=== PATIENT | male | born 1985 | race Two or more races ===

== ENCOUNTER → 2023-02-27 14:46 | Outpatient (REF) | payer OTHER, SELFPAY | LOC: HO.SL 14:46 | PROVIDERS: Visit Provider Physician Assistant | DX: G47.33 Obstructive sleep apnea (adult) (pediatric) (principal); R06.83 Snoring | CPT/HCPCS: 95806 ==

== ENCOUNTER → 2023-02-27 19:00 | Outpatient (BNV) | payer OTHER, SELFPAY | PROVIDERS: Visit Provider Internal Medicine | DX: G47.33 Obstructive sleep apnea (adult) (pediatric) (principal) | CPT/HCPCS: 95806 ==

== ENCOUNTER 2023-03-09 09:13 | Emergency (ER) | payer OTHER, SELFPAY ==
--- NOTE | ~2023-03-09 | US_ITS ---
EXAMINATION: US SCROTUM CLINICAL INFORMATION: Right testicular pain. COMPARISON: None available. TECHNIQUE: A sonogram of the scrotum was performed assessing knott-scale appearance and color Doppler flow. Spectral Doppler analysis of the arterial and venous flow were performed in the testes bilaterally. FINDINGS: RIGHT: Right testicle measures 4.9 x 2.5 x 3.1 cm, volume 19.1 mL. No focal testicular parenchymal lesions are visualized. Scattered microliths. Spectral Doppler analysis of the arterial and venous flow is normal in the right testis. Right epididymal head is normal in size. No significant right hydrocele or varicocele is seen. Right epididymal Doppler flow is normal. LEFT: Left testicle measures 4.6 x 2.6 x 2.8 cm, volume 17.4 mL. No focal testicular parenchymal lesions are visualized. Scattered microliths. Spectral Doppler analysis of the arterial and venous flow is normal in the left testis. Small left testicular appendix. Left epididymal head is normal in size. No significant left hydrocele or varicocele is seen. Left epididymal Doppler flow is normal. US/US scrotum doppler IMPRESSION: There is no evidence of testicular torsion. Few scattered testicular microliths. Left testicular appendix.
--- NOTE | ~2023-03-09 | US_ITS ---
EXAMINATION: US SCROTUM CLINICAL INFORMATION: Right testicular pain. COMPARISON: None available. TECHNIQUE: A sonogram of the scrotum was performed assessing knott-scale appearance and color Doppler flow. Spectral Doppler analysis of the arterial and venous flow were performed in the testes bilaterally. FINDINGS: RIGHT: Right testicle measures 4.9 x 2.5 x 3.1 cm, volume 19.1 mL. No focal testicular parenchymal lesions are visualized. Scattered microliths. Spectral Doppler analysis of the arterial and venous flow is normal in the right testis. Right epididymal head is normal in size. No significant right hydrocele or varicocele is seen. Right epididymal Doppler flow is normal. LEFT: Left testicle measures 4.6 x 2.6 x 2.8 cm, volume 17.4 mL. No focal testicular parenchymal lesions are visualized. Scattered microliths. Spectral Doppler analysis of the arterial and venous flow is normal in the left testis. Small left testicular appendix. Left epididymal head is normal in size. No significant left hydrocele or varicocele is seen. Left epididymal Doppler flow is normal. US/US scrotum IMPRESSION: There is no evidence of testicular torsion. Few scattered testicular microliths. Left testicular appendix.
--- NOTE | ~2023-03-09 | CT_ITS ---
EXAMINATION: CT ABDOMEN AND PELVIS WITH CONTRAST CLINICAL INFORMATION: Left lower quadrant pain. COMPARISON: None available. TECHNIQUE: Multidetector volumetric images were obtained from the superior aspect of the liver through the pubic symphysis following administration 85 mL of Omnipaque 350 intravenous contrast. Sagittal and coronal reformatted images were obtained on the technologist's workstation. Oral contrast: No This CT examination was performed using dose optimization techniques as appropriate, variously including the following: *Automated exposure control *Adjustment of mA and/or kV according to patient size (this includes techniques or standardized protocols for targeted exams where dose is matched to indication/reason for exam; i.e. extremities or head) *Use of iterative reconstruction technique DLP: 1041 mGy-cm FINDINGS: LUNG BASES: The visualized lung bases are unremarkable. LIVER, GALLBLADDER, AND BILIARY TREE: The liver is decreased in attenuation. No focal hepatic lesion or biliary ductal dilatation is present. The gallbladder is unremarkable with no evidence of radiopaque gallstones, gallbladder wall thickening, or obvious pericholecystic inflammatory changes. PANCREAS: Unremarkable. SPLEEN: Unremarkable. ADRENAL GLANDS: Unremarkable. KIDNEYS AND URETERS: The kidneys are normal in size, shape, and attenuation. No hydronephrosis. No perinephric stranding. BLADDER: Underdistended. GASTROINTESTINAL TRACT: The small and large bowel are unremarkable. The appendix is unremarkable. ABDOMINAL WALL: No significant hernia is appreciated. LYMPH NODES: Scattered subcentimeter mesenteric lymph nodes are nonspecific. VASCULAR: Normal caliber abdominal aorta. PELVIC VISCERA: Coarse calcifications of the prostate gland. OSSEOUS STRUCTURES: No destructive bone lesion. CT/CT abdomen pelvis w IV con IMPRESSION: No acute abnormality in the abdomen or pelvis. Hepatic steatosis.
[2023-03-09 09:18] VITALS: BP 157/91; PULSE 84; RESP 18; TEMP 36.5; O2SAT 96; BMI 38.0
--- NOTE | 2023-03-09 09:40 | ED.MALEGU ---
HPI - Male Genitourinary General Chief complaint: Urogenital-Male Stated complaint: testicle pain Time Seen by Provider: 03/09/23 09:40 Source: patient Mode of arrival: ambulatory Limitations: no limitations History of Present Illness HPI Narrative: Patient is a 37-year-old male with history of left varicocele status post surgical repair presenting to the emergency department with complaint of right testicular pain since Monday. States pain has been constant, denies swelling, erythema, rash. Denies any abnormal penile discharge. Does report some dysuria. States the pain is radiating to his lower abdomen. He also reports nausea and diarrhea which began this morning. Denies fevers. Denies vomiting or constipation. MD Complaint: testicle pain Onset (ago): day(s) Duration: constant Location: right testicle Severity: severe Severity scale (1-10): 8 Quality: aching Relieving factors: none Exacerbating factors: palpation and movement Associated symptoms: Reports denies other symptoms Related Data Allergies Allergy/AdvReac Type Severity Reaction Status Date / Time loratadine [From Claritin] Allergy Anaphylaxis Verified 03/09/23 09:17 Review of Systems Review of Systems: As per HPI. Yes all other systems are reviewed and are negative Constitutional: Constitutional: Reports as per HPI [facility] Social History Social History Smoked in Last 30 Days: No Advance Directives: No Physical Exam Vital Signs: Vital Signs: Last Vital Signs Temp 97.7 F 03/09/23 09:18 Pulse 84 03/09/23 09:18 Resp 18 03/09/23 09:18 BP 157/91 H 03/09/23 09:18 Pulse Ox 96 03/09/23 09:18 O2 Del Method Room Air 03/09/23 09:18 BMI result Body Mass Index 38.0 Vital signs have been reviewed and appear to be correct. Blood pressure elevated. Heart rate normal. Respiratory rate normal. Temperature normal. Oxygen saturation normal. Const: General: cooperative, healthy appearing and no acute distress Orientation/consciousness: oriented to person, oriented to place, oriented to time and patient oriented x3 Limitations: no limitations HEENT: Head: Yes normocephalic and Yes atraumatic Ears: external ears normal General nose exam: Normal external nose present Face and sinus: Yes face symmetric Mouth: oropharynx normal and moist mucous membranes Throat: Yes uvula midline Eyes: Pupils: Equal, round and reactive pupils present Neck: Neck: Yes normal visual inspection and Yes supple Resp: Effort & Inspection: normal respiratory effort and able to speak in complete sentences Auscultation: clear to auscultation bilaterally Cardio: Rate: regular rate Rhythm: regular rhythm Heart sounds: S1 normal heart sound present and S2 normal heart sound present GI: Palpation (GI): Soft to palpation and nontender Auscultation: normoactive bowel sounds : Other: Exam chaperoned by SHARAD Nicholas General: Yes no CVA tenderness Penis: normal penis Scrotum: scrotum normal, cremasteric reflex present, no ecchymosis, not edematous, not erythematous, testes descended bilaterally and other (surgical scar left inguinal area) Testes: testicular lie normal, epididymal tenderness on the right, no testicular swelling and testicular tenderness on the right Back/Spine/Pelvis: Back: no CVA tenderness Skin: General skin exam: elasticity normal and turgor normal Neuro: General: oriented to person, oriented to place, oriented to time, patient oriented x3, moves all extremities, no focal motor deficits and CN's II-XI intact bilaterally Cranial nerves: Yes Equal, round and reactive pupils present Cognition (Neuro): normal cognition Extrem: General: Yes full ROM, Yes no pedal edema and Yes no calf tenderness Psych: Mental Status: mental status grossly normal Affect: normal affect Thought process: Normal thought process present Medications Administered Discontinued Medications Generic Name Dose Route Start Last Admin Trade Name Freq PRN Reason Stop Dose Admin Iohexol 100 ml 03/09/23 14:10 03/09/23 14:10 Iohexol 350 Mg/Ml 100 Ml Infus..Btl IV 03/09/23 14:11 85 ml ONCE ONE Administration Ketorolac Tromethamine 30 mg 03/09/23 09:44 03/09/23 09:50 Ketorolac Tromethamine 30 Mg/Ml Vial IM 03/09/23 09:45 30 mg ONCE ONE Administration Medical Decision Making Medical Decision Making MDM Narrative: Patient is a 37-year-old male with history of left varicocele status post surgical repair presenting to the emergency department with complaint of right testicular pain since Monday. On exam patient is awake, A+Ox3, BP elevated, VS otherwise WNL, afebrile, normal neurological exam without focal deficits, physical exam findings as above. Given reported symptoms and physical exam findings, initial differential includes torsion, epididymitis, epididymo-orchitis, hydrocele, varicocele. Do not suspect Peyton's, hernia, abscess. Ultrasound notable for no torsion, no evidence of epididymitis, hydrocele, or varicocele. No evidence of infection on urinalysis. Will obtain basic labs, reassess. On re-exam patient noted to have LLQ abdominal tenderness. Will obtain CT abdomen/pelvis. Labs notable for no leukocytosis, no anemia, no significant electrolyte abnormalities. CT notable for no acute abnormalities. My interpretation is in agreement with the radiologist's interpretation. CT NG urine results pending, patient will be contacted with any positive results. Will prior patient to urology for further evaluation of symptoms. Return precautions discussed with patient at bedside. Advised patient to alternate Tylenol and ibuprofen as needed for discomfort. Patient verbalized understanding of and agreement with plan. Differential Diagnosis Differential Diagnoses: The differential diagnosis associated with the presentation includes As per [facility]. Admission/Observation Consideration of admission/observation: Escalation of care including admission/observation considered Lab Data [facility] Lab Attestation statement: I reviewed the patient's lab results. As per [facility]. 03/09/23 12:16 03/09/23 12:16 Labs: Lab Results 03/09/23 03/09/23 Range/Units 11:02 12:16 WBC 7.1 (4.8-10.8) X10*3/uL RBC 5.36 (4.60-5.80) X10*6/uL Hgb 15.0 (14.0-18.0) g/dl Hct 45.2 (42.0-52.0) % MCV 84.3 (80.0-98.0) fL MCH 28.0 (27.0-33.0) pg MCHC 33.2 (31.0-36.0) g/dl RDW 13.6 (11.0-16.0) % Plt Count 286 (160-400) X10*3/uL MPV 9.7 (9.4-12.4) fL Immature Gran % (Auto) 0.1 (0.0-0.4) % Neut % (Auto) 59.4 (45-73) % Lymph % (Auto) 30.1 (20-40) % Wise % (Auto) 8.6 (2-11) % Eos % (Auto) 1.5 (0-4) % Baso % (Auto) 0.3 (0-2) % Lymph # (Auto) 2.1 (1.2-4.9) X10*3/uL Wise # (Auto) 0.6 (0.1-1.2) X10*3/uL Eos # (Auto) 0.1 (0.0-0.4) X10*3/uL Baso # (Auto) 0.0 (0.0-0.2) X10*3/uL Abs Immat Gran (auto) 0.01 (0.00-0.03) X10*3/uL Absolute Neuts (auto) 4.2 (2.0-8.3) x10*3/uL Absolute Nucleated RBC 0.000 (0.0-0.012) X10*3/uL Nucleated RBC % (auto) 0.0 (0.0-0.2) /100WBC Sodium 139 (135-145) mmol/L Potassium 4.1 (3.3-5.1) mmol/L Chloride 106 (96-108) mmol/L Carbon Dioxide 27 (22-29) mmol/L Anion Gap 10 L (12-20) BUN 11 (9-16) mg/dL Creatinine 0.76 (0.5-1.4) mg/dL Estim Creat Clear Calc 169.5 Estimated GFR > 60 Random Glucose 90 (60-115) mg/dL Calcium 9.4 (8.4-10.2) mg/dL Urine Color Yellow Urine Appearance Clear Urine pH 8.0 (5.0-9.0) Ur Specific [place] 1.020 (1.005-1.025) Urine Protein Negative (Neg-Trace) mg/dL Urine Glucose (UA) Negative (Negative) mg/dL Urine Ketones Negative (Negative) mg/dL Urine Blood Negative (Negative) Urine Nitrite Negative (Negative) Ur Leukocyte Esterase Negative (Negative) Independent Interpretation I performed an independent interpretation of an: Ultrasound and CT Scan Interpretation: No acute abnormalities on abdominal CT Radiology Impression Discussion of test interpretation with radiology: I have reviewed the radiologist's reading. Radiologist Impression: US/US scrotum IMPRESSION: There is no evidence of testicular torsion. Few scattered testicular microliths. Left testicular appendix. CT/CT abdomen pelvis w IV con IMPRESSION: No acute abnormality in the abdomen or pelvis. Hepatic steatosis. External Record Review External record reviewed: Inpatient record, Office record and Outpatient record Discharge Plan Discharge Clinical Impression: Right testicular pain Patient Disposition: Home, Self-Care Instructions: Testicle Pain (ED) Additional Instructions: You were evaluated in the emergency department today for testicular pain. Your evaluation including labs, urinalysis, ultrasound, and CT scan did not show evidence of any conditions requiring emergent medical treatment at this time. You are being referred to urology for further evaluation of your symptoms. Please call their office 1st thing tomorrow morning to schedule an appointment. You can take 650 mg of Tylenol or 600 mg ibuprofen every 6 hours as needed for pain. If necessary, you can alternate these medications every 3 hours. For example, at noon take Tylenol, then at 3:00 p.m. take ibuprofen, then at 6:00 p.m. take Tylenol, etc.. Return to the emergency department with worsening pain, difficulty urinating, persistent vomiting, fever 100.4F or greater, or any other concerning symptoms. Referrals: [facility] [Provider Group]
[2023-03-09] MEDS: Ketorolac Tromethamine 30 MG/ML VIAL IM (09:50)
[2023-03-09 11:17] LABS: Appearance Urine Clear; Color Urine Yellow; Glucose Urine UA Negative (Negative); Leukocyte Esterase Urine Negative (Negative); Nitrite Urine Negative (Negative); Urine Blood Negative (Negative); Urine Ketones Negative (Negative); Urine Protein Negative (Neg-Trace)
[2023-03-09 12:26] LABS: MANUAL DIFF FLAG NO
[2023-03-09 12:34] LABS: Basophils Percent Auto 0.3 % (0-2); Eosinophils Absolute Auto 0.1 X10*3/uL (0.0-0.4); Eosinophils Percent Auto 1.5 % (0-4); Hematocrit 45.2 % (42.0-52.0); Imm Gran Abs Auto 0.01 X10*3/uL (0.00-0.03); Imm Gran Pct Auto 0.1 % (0.0-0.4); Lymphocytes Absolute Auto 2.1 X10*3/uL (1.2-4.9); Lymphocytes Percent Auto 30.1 % (20-40); Mean Corpuscular HGB Conc 33.2 g/dl (31.0-36.0); Mean Corpuscular Volume 84.3 fL (80.0-98.0); Mean Platelet Volume 9.7 fL (9.4-12.4); Monocytes Absolute Auto 0.6 X10*3/uL (0.1-1.2); Monocytes Percent Auto 8.6 % (2-11); Neutrophils Absolute Auto 4.2 x10*3/uL (2.0-8.3); Neutrophils Percent Auto 59.4 % (45-73); Platelet Count 286 X10*3/uL (160-400); Red Blood Count 5.36 X10*6/uL (4.60-5.80); Red Cell Distribution Width 13.6 % (11.0-16.0); White Blood Count 7.1 X10*3/uL (4.8-10.8)
[2023-03-09 12:39] LABS: Anion Gap 10 (12-20); Blood Urea Nitrogen 11 mg/dL (9-16); Calcium 9.4 mg/dL (8.4-10.2); Carbon Dioxide 27 mmol/L (22-29); Chloride 106 mmol/L (96-108); Creatinine Clr Calc Pharmacy 169.5; Estimated Glomerular Filt Rate > 60; Glucose Random 90 mg/dL (60-115); Potassium 4.1 mmol/L (3.3-5.1); Sodium 139 mmol/L (135-145)
[2023-03-09] MEDS: iohexoL 350 MG/ML 100 ML INFUS..BTL IV (14:10)
[2023-03-09 16:48] LABS: CT PCR NOT DETECTED (Not Detect.); NG PCR NOT DETECTED (Not Detect.)
== END 2023-03-09 15:55 | disposition home or self-care (01) ==
PROVIDERS: Registered Nurse Emergency; Emergency Provider Emergency Medicine; PCP Physician Assistant
DX: N50.811 Right testicular pain (principal); R10.2 Pelvic and perineal pain; R30.0 Dysuria; Z79.899 Other long term (current) drug therapy
CPT/HCPCS: 0353U; 36415; 74177; 76870; 80048; 81003; 85025; 93975; 96372; 99284; J1885; Q9967

== ENCOUNTER 2023-06-07 09:40 | Outpatient (AMB) | payer BC, SELFPAY ==
--- NOTE | 2023-06-07 09:49 | MHC.OFFVIS ---
Intake Intake Visit Reasons: Testicular Pain([facility]) Intake Note: New Patient is Present for [facility] Follow Up Testicular Pain Urology Medication: None Antibiotic Allergies: None Blood Thinners: None Patient states that currently he is not in severe pain. When he does have pain in testicles it comes and goes. Patient denies any bleeding or discharge. Currently patient states he is prediabetic Allergies loratadine [From Claritin] Allergy (Verified 06/07/23 09:50) Anaphylaxis HPI HPI Comments History of Present Illness Details Jeff is a pleasant male. He has a patient of . He is seen for the following urologic conditions - testicular pain Reassurance provided Use any inflammatories as needed Testicular pain Presentation to emergency room Normal imaging On exam has inflamed epididymal head right side Discussed nature of variable epididymal inflammation Recommend 72 hours of anti-inflammatories as required Review of Systems Const Denies chills and Denies fever(s) Card Reports no additional complaints and Denies syncope Resp Denies cough GI Denies abdominal pain and Denies heartburn Reports as per HPI and Denies change in libido Neuro Denies syncope Psych Denies change in libido Endo Denies change in libido Physical Exam Const General: cooperative, healthy appearing, comfortable and no acute distress Orientation/consciousness: patient oriented x3 HEENT Face and sinus: Yes normal facial exam Mouth: moist mucous membranes Neck Neck: Yes normal visual inspection, Yes full ROM and Yes trachea midline Chest Chest palpation & inspection: normal inspection of the chest Resp Effort & Inspection: normal respiratory effort, able to speak in complete sentences and no respiratory distress GI Inspection: Yes normal to inspection Back/Spine/Pelvis Cervical Spine: normal cervical lordosis Thoracic/Lumbar Spine: thoracic and lumbar spine normal to inspection Skin General skin exam: no rashes or lesions noted Neuro General: patient oriented x3, gait normal, tone normal and moves all extremities Extrem General: Yes normal to inspection and Yes capillary refill normal Results AMB Urinalysis, Automated UA Leukoctes 0 Uriel/uL Last Edit by PRADIP Larsen on 06/07/23 10:01 UA Nitrite Negative Last Edit by PRADIP Larsen on 06/07/23 10:01 UA Urobilinogen 0.2 mg/dL Last Edit by PRADIP Larsen on 06/07/23 10:01 UA Protein 15 mg/dL Last Edit by Dara Schmidt A on 06/07/23 10:01 UA pH 5.5 Last Edit by Dara Schmidt RMA on 06/07/23 10:01 UA Blood 0 Scott/uL Last Edit by Dara Schmidt, RMA on 06/07/23 10:01 UA Specific [place] 1.025 Last Edit by Dara Schmidt RMA on 06/07/23 10:01 UA Ketone Negative Last Edit by Dara Schmidt RMA on 06/07/23 10:01 UA Bilirubin 0 mg/dL Last Edit by Dara Schmidt RMA on 06/07/23 10:01 UA Glucose 0 mg/dL Last Edit by Dara Schmidt A on 06/07/23 10:01 Results Reviewed Results Reviewed: Laboratory Last Values Urine pH (Auto) 5.5 06/07/23 09:51 Specific [place] (Auto) 1.025 06/07/23 09:51 Urine Protein (Auto) 15 mg/dL 06/07/23 09:51 Glucose (UA)(Auto) 0 mg/dL 06/07/23 09:51 Urine Ketones (Auto) Negative 06/07/23 09:51 Urine Blood (Auto) 0 Scott/uL 06/07/23 09:51 Urine Nitrite (Auto) Negative 06/07/23 09:51 Urine Bilirubin (Auto) 0 mg/dL 06/07/23 09:51 Urine Urobilinogen (Auto) 0.2 mg/dL 06/07/23 09:51 Leukocyte Esterase (Auto) 0 Uriel/uL 06/07/23 09:51 Assessment & Plan Assessment & Plan (1) Epididymitis: Code(s): N45.1 - Epididymitis Plan P.r.n. follow-up Orders: Orders AMB Urinalysis Automated 06/07/23 Z13.9 - Encounter for screening, unspecified Patient Instructions: Imaging studies, laboratory and physical exam results were discussed and reviewed in detail. No major barriers to patient understanding were identified. An opportunity to ask questions regarding the treatment plan was provided. All questions were answered. The patient expressed understanding and agreement with the above treatment plan. The patient is aware they should contact our office by phone for worsening of their current condition or the appearance of new urologic symptoms. Compliance is encouraged with any medications and followup testing that is ordered. It is a privilege to participate in the urologic care of your patient. If you have any questions or concerns regarding treatment for the above conditions, or other urologic issues, please do not hesitate to contact me. The office telephone contact is [phone]. This note is constructed using voice recognition software. While every effort has been made to ensure accuracy technical sales advisor errors may have been included. Yours sincerely, Dr Kyle Graves MD, [facility] - Urology Providers of Expert, Compassionate Care for the Genitourinary System Coding Level of Care Code New Pt Level 3 (65031) Diagnoses Epididymitis N45.1
== END 2023-06-07 10:14 | disposition home or self-care (01) ==
PROVIDERS: PCP Physician Assistant; Visit Provider Urology
DX: N45.1 Epididymitis (principal)
CPT/HCPCS: 99203

== ENCOUNTER → 2023-06-07 09:40 | Outpatient (BNVA) | payer SELFPAY | PROVIDERS: PCP Physician Assistant; Visit Provider Urology | DX: N45.1 Epididymitis (principal) | CPT/HCPCS: 81003 ==

== ENCOUNTER 2025-04-13 21:05 | Emergency (ER) | payer OTHER, SELFPAY ==
--- NOTE | ~2025-04-13 | XR_ITS ---
CLINICAL HISTORY: SOB, fever 1 view chest x-ray Comparison: None provided Findings: No consolidation or effusion. Heart size is normal. No acute fracture. IMPRESSION: 1. No acute findings. This document has been electronically signed by: Marilia Jack MD on 04/13/2025 22:45:19
[2025-04-13 21:18] VITALS: BP 162/87; PULSE 121; RESP 22; TEMP 38.4; O2SAT 95; BMI 36.0
--- NOTE | 2025-04-13 21:32 | ECG_ITS ---
Test Reason : SEPSIS PROTOCOL Blood Pressure : */* mmHG Vent. Rate : 115 BPM Atrial Rate : 115 BPM P-R Int : 148 ms QRS Dur : 94 ms QT Int : 342 ms P-R-T Axes : 44 36 31 degrees QTcB Int : 473 ms Sinus tachycardia Possible Left atrial enlargement Borderline ECG No previous ECGs available Referred By: Lesli Hickman Electronically Signed By: CLARISSE WHELAN MD
--- OUTSIDE RECORDS SUMMARY | 2025-04-13 21:42 | XMS_ITS ---
Author Name [facility] Organization Unknown Care Team Organization Name Specialty Phone Email Start Date End Weston roque [facility] 08/16/2024 [facility] 08/16/2024
--- OUTSIDE RECORDS SUMMARY | 2025-04-13 21:42 | XMS_ITS | Clinical Summary ---
Author Organization [address] Address [address] [place] [phone] Phone Care Team Providers Care Annealing Torch Operator Name Role Phone Rashaad An GENERAL MANAGER Primary Care Provider [phone] Allergies Active Allergy Reactions Criticality Noted Date Comments Loratadine Dry Mouth 04/16/2024 VERY DRY THROAT AND SOME SHORTNESS OF BREATH BECAUSE OF IT. Medications famotidine (PEPCID) 40 mg tablet Take 1 tablet (40 mg total) by mouth 1 (one) time each day. Active famotidine (PEPCID) 40 mg tablet every 12 hours. 4 Active FLUoxetine (PROzac) 20 mg tablet Take 1 tablet (20 mg total) by mouth 1 (one) time each day. Active traZODone (DESYREL) 50 mg tablet Take 1 tablet (50 mg total) by mouth at bedtime. Active ciclopirox (PENLAC) 8 % solution Apply topically at bedtime. Apply over nail and surrounding skin. Apply daily over previous coat. After seven (7) days, may remove with alcohol and continue cycle. Active sucralfate (CARAFATE) 1 gram tablet TAKE 1 TABLET BY MOUTH 4 TIMES DAILY (BEFORE MEALS AND NIGHTLY) FOR 90 DAYS. 360 tablet 5 Active pantoprazole (PROTONIX) 40 mg EC tablet TAKE 1 TABLET BY MOUTH EVERY DAY 90 tablet 3 5 Active Surgical History Surgery Date Site/Laterality Comments ESOPHAGOGASTRODUODENOSCOPY NASAL POLYP EXCISION Medical History Medical History Date Comments GERD (gastroesophageal reflux disease) Hypertension Sleep apnea Asthma Sinusitis Gastritis Diabetes mellitus ([facility] V24, [facility] V28) Anxiety Depression PTSD (post-traumatic stress disorder) Hiatal hernia Social History Tobacco Use Types Packs/Day Years Used Date Smoking Tobacco: Never Smokeless Tobacco: Never Tobacco Cessation:Counseling Given: Not Answered Alcohol Use Standard Drinks/Week Comments Not Currently 0 (1 standard drink = 0.6 oz pur e alcohol) Interpersonal Safety Answer Date Record ed Physical Abuse Unrecognized value 04/19/2024 Verbal Abuse Unrecognized value 04/19/2024 Sex and Gender Information Value Date Recorded Sex Assigned at Male 04/19/2024 7:17 AM EST Legal Sex Male 2:16 AM EST Gender Identity Male 04/19/2024 7:17 AM EST Sexual Orientation Straight 04/19/2024 7: 17 AM EST Last Filed Vital Signs Vital Sign Reading Time Taken Comments Blood Pressure 138/94 04/19/2024 8:53 AM EST Pulse 73 04/19/2024 8:53 AM EST Temperature 36.2 C (97.2 F) 04/19/2024 7:52 AM EST Respiratory Rate 20 04/19/2024 8:53 AM EST Oxygen Saturation 97% 04/19/2024 8:53 AM EST Inhaled Oxygen Concentration - - Weight 54.4 kg (120 lb) 04/19/2024 7:52 AM EST Height 175.3 cm (5' 9 ) 04/19/2024 7:52 AM EST Body Mass Index 17.72 04/19/2024 7:52 AM EST Plan of Treatment Health Maintenance Due Date Last Done Comments Diabetes: Annual Foot Exam 12/09/1993 Diabetes: Annual Retina Eye Exam 12/09/1993 Hepatitis A Vaccines (1 of 2 - Risk 2-dose series) 12/09/2002 HPV Vaccines (1 - 3-dose SCD M series) 12/09/2010 HIV Screening 02/22/2024 Hepatitis C Screening 02/22/2024 Social Influencers of Health Screening 02/22/2024 Depression Screening 05/08/2024 Diabetes: Annual Urine Albumin-Creatinine Ratio (uACR) 11/15/2024 DTaP,Tdap,and Td Vaccines (3 - Td or Tdap) 11/24/2024 11/24/2014, 12/28/1998 COVID-19 Vaccine (3 - 2024-2 6 season) 2025 06/30/2020, 06/02/2020 Influenza Vaccine (#1) 2025 , 02/23/2023 Diabetes: Blood Sugar Contro l Test (HGBA1C) 05/18/2025 11/15/2024, 05/24/2024 Diabetes: Annual GFR (Glomerular Filtration Rate) 11/15/2025 11/15/2024, 05/24/2024, 03/25/2024 Cholesterol Screening (Lipid Panel) 11/15/2029 11/15/2024, 05/24/2024 RSV Immunization Adult Patients (1 - 1-dose 75+ series) 12/09/2058 MMR Vaccines Completed 07/06/1990, 10/23/1984 Hepatitis B Vaccines Completed 09/08/1997, 04/15/1997, 03/21/1997 HIB Vaccines Aged Out No longer eligi ble based on patient's age to complete this topic IPV Vaccines Aged Out No longer eligi ble based on patient's age to complete this topic Meningococcal ACWY Vaccine Aged Out N o longer eligible based on patient's age to complete this topic Meningococcal B Vaccine Aged Out No l onger eligible based on patient's age to complete this topic Pneumococcal Vaccine: Pediatrics (0 to 5 Years) and At-Risk Patients (6 to 49 Years) Aged Out No longer eligible b ased on patient's age to complete this topic RSV Immunization Patients Under 20 months Aged Out No longer eligible b ased on patient's age to complete this topic Varicella Vaccines Aged Out No longer eligible based on patient's age to complete this topic Procedures Procedure Name Priority Date/Time Associated Diagnosis Comments COMPREHENSIVE METABOLIC PANEL Routine 11/15/2024 11:06 AM EDT Routine general medical examination at a health care facility Screening for diabetes mellitus Vitamin D deficiency disease Screening for thyroid disorder Screening for lipoid disorders HEMOGLOBIN A1C Routine 11/15/2024 11:06 AM EDT Routine general medical examination at a health care facility Screening for diabetes mellitus Vitamin D deficiency disease Screening for thyroid disorder Screening for lipoid disorders LIPID PANEL WITH REFLEX TO DIRECT LDL Routine 11/15/2024 11:06 AM EDT Routine general medical examination at a health care facility Screening for diabetes mellitus Vitamin D deficiency disease Screening for thyroid disorder Screening for lipoid disorders from Last 3 Months or Most Recently Relevant to Health Maintenance Results * (ABNORMAL) Lipid panel with reflex to direct LDL (11/15/2024 11:06 AM EDT) Cholesterol 176 0 - 200 mg/dL LAB CHEMISTRY METHOD 11/15/2024 2:24 PM EDT [facility] Triglycerides 204(H) 0 - 150 mg/dL LAB CHEMISTRY METHOD 11/15/2024 2:24 PM EDT [facility] HDL 37(L) >=40 mg/dL LAB CHEMISTRY METHOD 11/15/2024 2:24 PM EDT [facility] LDL Calculated 98 0 - 100 mg/dL LAB CHEMISTRY METHOD 11/15/2024 2:24 PM EDT [facility] VLDL Cholesterol Yan 40.8 mg/dL LAB CHEMISTRY METHOD 11/15/2024 2:24 PM EDT [facility] Non HDL Chol. (LDL+VLDL) 139 <145 mg/dL LAB CHEMISTRY METHOD 11/15/2024 2:24 PM EDT [facility] Chol/HDL Ratio 4.8(H) 0.0 - 4.4 LAB CHEMISTRY METHOD 11/15/2024 2:24 PM EDT [facility] Blood Venous blood specimen / Unknown Venipuncture / Unknown 11/15/2024 11:06 AM EDT 11/15/2024 1:06 PM EDT us Rashaad An GENERAL MANAGER LAB BLOOD ORDERABLES Final Re sult [facility] [address] [place] [address], * Hemoglobin A1c (11/15/2024 11:06 AM EDT) Pathologist [facility] [place] Hemoglobin A1C 6.3 <6.5 % LAB CHEMISTRY METHOD 11/15/2024 9:23 PM EDT [facility] Mean Bld Glu Estim. 134 mg/dL LAB CHEMISTRY METHOD 11/15/2024 9:23 PM [facility] Blood Venous blood specimen / Unknown Venipuncture / Unknown 11/15/2024 11:06 AM EDT 11/15/2024 1:07 PM EDT us Rashaad An GENERAL MANAGER LAB BLOOD ORDERABLES Final Re sult [facility] [address] [place] [address], [place] [phone] * Comprehensive metabolic panel (11/15/2024 11:06 AM EDT) Sodium 139 133 - 145 mmol/L LAB CHEMISTRY METHOD 11/15/2024 2:13 PM [facility] Potassium 4.0 3.5 - 5.5 mmol/L LAB CHEMISTRY METHOD 11/15/2024 2:13 PM [facility] Chloride 104 96 - 110 mmol/L LAB CHEMISTRY METHOD 11/15/2024 2:13 PM [facility] CO2 29 21 - 32 mmol/L LAB CHEMISTRY METHOD 11/15/2024 2:13 PM [facility] Anion Gap 6 3 - 11 LAB CHEMISTRY METHOD 11/15/2024 2:13 PM [facility] Glucose 100 70 - 100 mg/dL LAB CHEMISTRY METHOD 11/15/2024 2:13 PM [facility] BUN 14 5 - 25 mg/dL LAB CHEMISTRY METHOD 11/15/2024 2:13 PM [facility] Creatinine 0.91 0.70 - 1.30 mg/dL LAB CHEMISTRY METHOD 11/15/2024 2:13 PM [facility] eGFR 109 >=60 mL/min/1. 73m2 LAB CHEMISTRY METHOD 11/15/2024 2:13 PM EDT [facility] Comment:Calculation based on the Chronic Kidney Disease Epidemiology Collaboration (CKD-EPI) equation refit without adjustment for race. BUN/Creatinine Ratio 15.4 LAB CHEMISTRY METHOD 11/15/2024 2:13 PM EDT [facility] Calcium 8.7 8.5 - 10.5 mg/dL LAB CHEMISTRY METHOD 11/15/2024 2:13 PM T [facility] AST (SGOT) 18 10 - 42 unit/L LAB CHEMISTRY METHOD 11/15/2024 2:13 PM [facility] ALT (SGPT) 32 10 - 60 unit/L LAB CHEMISTRY METHOD 11/15/2024 2:13 PM [facility] Alkaline Phosphatase 100 42 - 121 unit/L LAB CHEMISTRY METHOD 11/15/2024 2:13 PM [facility] Total Protein 7.5 6.0 - 8.0 g/dL LAB CHEMISTRY METHOD 11/15/2024 2:13 PM EDT [facility] Albumin 3.9 3.2 - 5.0 g/dL LAB CHEMISTRY METHOD 11/15/2024 2:13 PM [facility] Total Bilirubin 0.6 0.0 - 1.4 mg/dL LAB CHEMISTRY METHOD 11/15/2024 2:13 PM [facility] Blood Venous blood specimen / Unknown Venipuncture / Unknown 11/15/2024 11:06 AM EDT 11/15/2024 1:06 PM EDT us Rashaad An NP LAB BLOOD ORDERABLES Final Re sult [facility] [address] [place] [address], [place] [phone] from Last 3 Months or Most Recently Relevant to Health Maintenance Insurance [facility] Care Teams Annealing Torch Operator Relationship Specialty Start Date End Date Rashaad An NP [address] [facility] [address] [place] [address] PCP - General Nurse Practitioner 05/24/24
[2025-04-13 21:52] LABS: MANUAL DIFF FLAG NO
[2025-04-13 21:53] LABS: Hematocrit 43.5 % (42.0-52.0); Hemoglobin 14.6 g/dl (14.0-18.0); Imm Gran Abs Auto 0.02 X10*3/uL (0.00-0.03); Imm Gran Pct Auto 0.3 % (0.0-0.4); Lymphocytes Absolute Auto 0.6 X10*3/uL (1.2-4.9); Mean Corpuscular HGB Conc 33.6 g/dl (31.0-36.0); Mean Corpuscular Hemoglobin 27.4 pg (27.0-33.0); Mean Corpuscular Volume 81.6 fL (80.0-98.0); NRBC Abs Auto 0.000 X10*3/uL (0.0-0.012); NRBC Pct Auto 0.0 /100WBC (0.0-0.2); Platelet Count 260 X10*3/uL (160-400); Red Blood Count 5.33 X10*6/uL (4.60-5.80); White Blood Count 7.9 X10*3/uL (4.8-10.8)
[2025-04-13 22:17] LABS: Alanine Aminotransferase 33 U/L (0-40); Albumin Level 4.9 g/dL (3.5-5.0); Alkaline Phosphatase 92 U/L (39-117); Anion Gap 16 (12-20); Aspartate Amino Transferase 29 U/L (5-37); Blood Urea Nitrogen 11 mg/dL (9-16); Calcium 9.4 mg/dL (8.4-10.2); Carbon Dioxide 23 mmol/L (22-29); Chloride 105 mmol/L (96-108); Creatinine Clr Calc Pharmacy 132.0; Estimated Glomerular Filt Rate > 60; Potassium 3.8 mmol/L (3.3-5.1); Sodium 140 mmol/L (135-145); Total Protein 8.0 g/dL (6.5-8.0)
[2025-04-13 22:25] VITALS: BP 142/84; PULSE 113; RESP 20; TEMP 38.8; O2SAT 92
[2025-04-13 22:38] VITALS: TEMP 38.8
--- NOTE | 2025-04-13 22:39 | PC.NURSE ---
notified of pts increased temp despite IV Tylenol given. New orders placed in the JUL.
[2025-04-13 22:51] LABS: Resp Syncy Virus RNA Qual PCR NEGATIVE (Negative); SARS COV2 PCR INHOUSE POSITIVE (Negative)
--- NOTE | 2025-04-13 23:08 | ED_ITS ---
HPI - Fever General Chief Complaint: Fever Stated Complaint: General Medical Time Seen by Provider: 04/13/25 21:30 Source: patient and family Mode of arrival: ambulatory Limitations: no limitations History of Present Illness ED Provider: Dr. Lesli Hickman HPI Narrative: 39-year-old male with a history of GERD, gastritis, obstructive sleep apnea, depression (on Seroquel), anxiety, and PTSD who presents with one week of upper- respiratory illness that began last Monday with sore throat. He was seen at urgent care on where a throat swab was positive for group A strep and amoxicillin was started (now 3 full days completed). Beginning today around 1300 he developed abrupt worsening with high fever, rigors, increasing shortness of breath, headache, nausea, epigastric abdominal pain radiating to his back, and non-productive cough. is recovering from a similar illness but is currently flu & COVID negative while patient feels worse. No difficulty with medication tolerability aside from persistent symptoms. No rash reported. Claritin previously caused shortness of breath; tolerates other antihistamines. Denies difficulty swallowing solids/liquids beyond throat discomfort. Reports improved tinnitus and some numbness in his ears at home. Related Data Home Medications ?Medication ?Instructions ?Recorded ?Confirmed esomeprazole magnesium 20 mg 20 mg PO DAILY 06/07/23 capsule,delayed release flash glucose sensor (FreeStyle #1 ea 06/07/23 Julissa 2 Sensor kit) fluoxetine 60 mg tablet 60 mg PO DAILY 06/07/23 trazodone 50 mg tablet mg PO 06/07/23 Previous Rx's ?Medication ?Instructions ?Recorded ondansetron 4 mg disintegrating 4 mg PO Q8H PRN nausea and 04/14/25 tablet vomiting #10 tabs Allergies Allergy/AdvReac Type Severity Reaction Status Date / Time loratadine (From Claritin) Allergy Anaphylaxis Verified 04/13/25 21:20 Review of Systems 2 Review of Systems: as per HPI, full review of systems performed and negative but for the above mentioned pertinent positives and negatives. Physical Exam 2 Exam: Exam: GENERAL: Ill-Appearing, appears uncomfortable. SKIN: Normal skin color for ethnicity, warm, dry, no rashes noted. HEENT:? Normocephalic, atraumatic, no stridor, dry mucous membranes, dentition intact, EOMI, TMs obscured bilaterally by cerumen. NECK: Soft, supple, full ROM, midline structures nontender, no step-offs, no deformities, no lymphadenopathy. CHEST: Heart regular tachycardia, no murmurs, symmetric chest rise and fall. PULMONARY: Clear to auscultation bilaterally, diminished at the bases, no labored breathing, no wheezes/rhales/rhonchi. ABDOMINAL: Soft, nondistended, nontender, positive bowel sounds in all quadrants. : Deferred. MUSCULOSKELETAL: Normal tone, full range of motion, no deformities, no peripheral edema. NEURO: Alert and oriented x3, CN II through XII intact, equal strength and sensation bilateral upper and lower extremities, no focal neurologic deficits.? PSYCHIATRIC: Flat affect, fluid speech, good eye contact and appropriate demeanor. Vital Signs: Vital Signs: Last Vital Signs Temp 98.4 F 04/14/25 01:46 Pulse 95 04/14/25 01:46 Resp 20 04/14/25 01:46 BP 125/80 04/14/25 01:46 Pulse Ox 95 04/14/25 01:46 O2 Del Method Room Air 04/14/25 01:46 BMI result Body Mass Index 36.0 Medications Administered Discontinued Medications Generic Name Dose Route Start Last Admin Trade Name Freq PRN Reason Stop Dose Admin Lactated Ringer's 3,414 mls @ 3,414 mls/hr 04/13/25 21:32 04/14/25 00:55 Lr 30 ml/kg infuse over 1 hr (3414 ml) 04/13/25 22:31 Infused IV Infusion .Q1H ONE Acetaminophen 1,000 mg in 100 mls @ 400 mls/hr 04/13/25 21:32 04/13/25 22:04 Ofirmev IV 04/13/25 21:46 Infused ONCE ONE Infusion Ibuprofen 600 mg 04/13/25 22:34 04/13/25 22:45 Ibuprofen 600 Mg Tablet PO 04/13/25 22:35 600 mg ONCE ONE Administration Ondansetron HCl 4 mg 04/13/25 22:34 04/13/25 22:45 Ondansetron Hcl 4 Mg/2 Ml Vial IVPUSH 04/13/25 22:35 4 mg ONCE ONE Administration Medical Decision Making Medical Decision Making MDM Narrative: 39-year-old male with confirmed SARS-CoV-2 infection and group A streptococcal pharyngitis with systemic viral symptoms but reassuring laboratory and imaging findings. Differential diagnosis includes influenza, coronavirus, pneumonia, upper respiratory infection, among others. Most importantly, this patient is not in any acute respiratory distress. They have normal oxygen levels at room air. Problem #1: COVID 19 infection Assessment: Positive COVID-19 PCR in ED, day ~7 of illness with fever, chills, cough, SOB; stable labs/imaging. Plan: - Supportive care: Continue acetaminophen/ibuprofen for fever and myalgias. - IV fluids in ED; discharge when afebrile/improved. - No antiviral therapy (beyond 5-day window; risk > benefit per discussion). - Isolation: May return to work once afebrile >=24 h without antipyretics; wear mask if persistent cough. Problem #2: Streptococcal pharyngitis Assessment: Positive rapid strep ; on amoxicillin with minimal throat improvement. Plan: - Finish the course of amoxicillin as prescribed. - Return if worsening sore throat, drooling, airway obstruction concerns. Problem #3: Nausea/Vomiting risk Assessment: Nausea today; no emesis in ED. Plan: - Administered anti-emetic in ED; discharge prescription PRN. Problem #4: Pain/Fever control Plan: - Acetaminophen and ibuprofen alternating every 4?6 h as needed. Follow-up: Return to ED for any concerning change. Differential Diagnosis Differential Diagnoses: The differential diagnosis associated with the presentation includes (as above) Admission/Observation Consideration of admission/observation: Escalation of care including admission/observation considered Lab Data MDM Lab Attestation statement: I reviewed the patient's lab results. 04/13/25 21:45 04/13/25 21:45 Labs: Lab Results 04/13/25 04/13/25 Range/Units 21:45 21:59 WBC 7.9 (4.8-10.8) X10*3/uL RBC 5.33 (4.60-5.80) X10*6/uL Hgb 14.6 (14.0-18.0) g/dl Hct 43.5 (42.0-52.0) % MCV 81.6 (80.0-98.0) fL MCH 27.4 (27.0-33.0) pg MCHC 33.6 (31.0-36.0) g/dl RDW 14.5 (11.0-16.0) % Plt Count 260 (160-400) X10*3/uL MPV 9.6 (9.4-12.4) fL Immature Gran % (Auto) 0.3 (0.0-0.4) % Neut % (Auto) 75.5 H (45-73) % Lymph % (Auto) 7.5 L (20-40) % [place] % (Auto) 16.3 H (2-11) % Eos % (Auto) 0.1 (0-4) % Baso % (Auto) 0.3 (0-2) % Lymph # (Auto) 0.6 L (1.2-4.9) X10*3/uL [place] # (Auto) 1.3 H (0.1-1.2) X10*3/uL Eos # (Auto) 0.0 (0.0-0.4) X10*3/uL Baso # (Auto) 0.0 (0.0-0.2) X10*3/uL Abs Immat Gran (auto) 0.02 (0.00-0.03) X10*3/uL Absolute Neuts (auto) 6.0 (2.0-8.3) x10*3/uL Absolute Nucleated RBC 0.000 (0.0-0.012) X10*3/uL Nucleated RBC % (auto) 0.0 (0.0-0.2) /100WBC Sodium 140 (135-145) mmol/L Potassium 3.8 (3.3-5.1) mmol/L Chloride 105 (96-108) mmol/L Carbon Dioxide 23 (22-29) mmol/L Anion Gap 16 (12-20) BUN 11 (9-16) mg/dL Creatinine 0.93 (0.5-1.4) mg/dL Estim Creat Clear Calc 132.0 Estimated GFR > 60 Random Glucose 140 H (60-115) mg/dL Lactic Acid 2.0 (0.5-2.0) mmol/L Calcium 9.4 (8.4-10.2) mg/dL Total Bilirubin 0.3 (0.0-1.0) mg/dL AST 29 (5-37) U/L ALT 33 (0-40) U/L Alkaline Phosphatase 92 (39-117) U/L Total Protein 8.0 (6.5-8.0) g/dL Albumin 4.9 (3.5-5.0) g/dL Influenza Type A (PCR) NEGATIVE (Negative) Influenza Type B (PCR) NEGATIVE (Negative) RSV RNA Qual (PCR) NEGATIVE (Negative) SARS-CoV-2 RNA (RT-PCR) POSITIVE A (Negative) Radiology Impression Discussion of test interpretation with radiology: I have reviewed the radiologist's reading. Independent Historian Clinical information obtained from an independent historian. History obtained from or confirmed by: Spouse External Record Review External record reviewed: Inpatient record Prescription Management I considered prescription management with: Other (antipyretics) Discharge Plan Discharge Clinical Impression: Acute febrile illness, COVID-19 virus infection Patient Disposition: Home, Self-Care Instructions: COVID-19 (Coronavirus Disease 2019) (ED) Additional Instructions: You tested positive for COVID 19 today. Unfortunately, your out of the window for antiviral medications. Continue to force your fluids over the next several days. Drink plenty of water to try to flush this out of your system. Use Tylenol and Motrin for fever around the clock. You may alternate the 2 every 4 hours. Use Zofran as needed for nausea. Continue to take your antibiotic as prescribed until the course is completed. Do not stop this medication early if you start to feel better. Stay out of work until you has been fever free for more than 24 hours. Return to the emergency department immediately with any new or worsening symptoms including: Worsening chest pain, difficulty breathing, continued fevers despite Motrin / Tylenol, passing out, inability to tolerate food or drink, any new symptom that concerns you. Call 911 with any medical emergency. Prescriptions: New ondansetron 4 mg tablet,disintegrating 4 mg PO Q8H PRN (Reason: nausea and vomiting) Qty: 10 0RF No Action esomeprazole magnesium 20 mg capsule,delayed release(DR/EC) 20 mg PO DAILY (DME) FreeStyle Julissa 2 Sensor Kit See Rx Instructions .ROUTE QID Qty: 1 Rx Instructions: As directed fluoxetine 60 mg tablet 60 mg PO DAILY trazodone 50 mg tablet PO Stand Alone Forms: Work/School Release Interventions: ED Discharge Assessment Last Done: 04/14/25 01:46 Discharge Date/Time: 04/14/25 01:47 Print Language: Azerbaijani
[2025-04-14 00:13] VITALS: BP 124/74; PULSE 105; RESP 15; TEMP 37.2; O2SAT 95
[2025-04-14 01:05] VITALS: BP 124/78; PULSE 98; RESP 14; TEMP 36.9; O2SAT 96
[2025-04-14 01:42] VITALS: BP 125/80; PULSE 95; RESP 20; O2SAT 95
[2025-04-14 01:46] VITALS: BP 125/80; PULSE 95; RESP 20; TEMP 36.9; O2SAT 95
== END 2025-04-14 01:47 | disposition home or self-care (01) ==
PROVIDERS: Emergency Provider Emergency Medicine; PCP Nurse Practitioner Acute Care
DX: U07.1 COVID-19 (principal); J02.0 Streptococcal pharyngitis; B95.0 Streptococcus, group A, as the cause of diseases classified elsewhere; R50.9 Fever, unspecified
CPT/HCPCS: 71045; 80053; 83605; 85025; 87040; 87637; 93005; 96361; 96374; 96375; 99284; 99285; J0131; J2405; J7120

== ENCOUNTER → 2025-04-13 21:32 | Outpatient (BNV) | payer OTHER, SELFPAY | PROVIDERS: Emergency Provider Emergency Medicine; PCP Nurse Practitioner Acute Care; Visit Provider Internal Medicine Cardiovascular Disease | DX: R00.0 Tachycardia, unspecified (principal) | CPT/HCPCS: 93010 ==